=== PATIENT | female | born 1985 | race Caucasian/White ===

== ENCOUNTER 2019-03-01 08:34 | Day surgery (SDC) | payer MEDICAID ==
[~2019-03-01] VITALS: Ht 170.2 cm; Wt 72.7 kg
[2019-03-01 08:42] VITALS: BP 126/76
[2019-03-01] MEDS ORDERED: IBUP-1986 PO (08:46)
[2019-03-01] MEDS ORDERED: MIDAZolam 5mg/5ml vial ONE (09:12)
[2019-03-01] MEDS ORDERED: fentaNYL/PF 50MCG/1 ML 2ML syringe ONE ×3 (09:12→09:57)
[2019-03-01] MEDS ORDERED: LIDOcaine Viscous 15ml cup ONE (09:12)
[2019-03-01 10:15] VITALS: BP 115/76
[2019-03-01 10:25] VITALS: BP 126/59
[2019-03-01 10:35] VITALS: BP 104/69
[2019-03-01 10:45] VITALS: BP 106/68
== END 2019-03-01 10:50 | disposition home or self-care (01) ==
LOC: GI LAB 08:34
PROVIDERS: ATTEND Internal Medicine Gastroenterology
DX: K59.00 Constipation, unspecified (principal); K29.50 Unspecified chronic gastritis without bleeding
CPT/HCPCS: 43239; 45378; 99152; 99153; J2250; J3010; J7030; A4620